=== PATIENT | male | born 1960 | race Caucasian/White ===

== ENCOUNTER 2017-09-16 12:05 | Inpatient (IN) | payer OTHER | END 2017-09-20 09:59 | disposition home or self-care (01) | DRG 773 | LOC: YASAS 12:05 → Y3N 14:36 | PROVIDERS: ADMIT Internal Medicine | PROC: HZ2ZZZZ Detoxification Services for Substance Abuse Treatment (ICD-10-PCS; principal; 2017-09-16) | CPT/HCPCS: 36415; 71045-TC-FY; 80053; 81003; 85027; 86593; 93005; 93010 ==

== ENCOUNTER 2022-12-17 13:42 | Inpatient (IN) | payer OTHER ==
[2022-12-17] MEDS ORDERED: VANCOMYCIN 1 GM in D5W (PRE-DOCKED) 1,000 MG/250 ML (RESTRICTED TO ID ONLY IVPB ONE (14:59)
[2022-12-17] MEDS ORDERED: PIPERACILLIN/TAZOB 4.5 GM 4.5 GM in DEXTROSE 5%-WATER 100 ML IVPB ONE (14:59)
[2022-12-17] MEDS ORDERED: PIPERACILLIN/TAZOB 4.5 GM 4.5 GM/100 ML BAG IVPB ONE (15:47)
[2022-12-17] MEDS ORDERED: VANCOMYCIN/WATER FOR INJ (PEG) 1,000 MG/200 ML BAG IVPB ONE (15:47)
[2022-12-17 17:03] LABS: BASO % 0.2 % (0-2.0); EOS % 0.1 % (0-4.5); HEMATOCRIT 31.2 % (35.4-49); HEMOGLOBIN 10.5 GM/dL (11.7-16.9); LYMPH % 28.6 % (8-40); MCH 27.7 pg (25.7-33.7); MCHC 33.6 g/dl (32.0-35.9); MEAN CELL VOLUME 82.5 fl (80-96); MEAN PLT VOLUME 8.6 fl (7.5-11.1); MONO % 6.7 % (3.8-10.2); NEUT % 64.4 % (42.8-82.8); PLATELET COUNT 129 10^3/uL (134-434); RBC 3.78 M/mm3 (4.00-5.60); RDW 14.7 % (11.9-15.9); WHITE BLOOD COUNT 7.2 K/mm3 (4.0-10.0)
[2022-12-17 17:10] LABS: INR 1.07 (0.83-1.09); PROTHROMBIN TIME (PATIENT) 12.4 SEC (9.7-13.0)
[2022-12-17 17:11] LABS: POTASSIUM 4.6 mmol/L (3.5-5.1)
[2022-12-17 17:12] LABS: ACTIVATED PTT 23.6 SECONDS (25.2-36.5)
[2022-12-17 17:15] LABS: ALBUMIN 2.6 g/dl (3.4-5.0)
[2022-12-17 17:18] LABS: CREATININE 0.6 mg/dL (0.55-1.3)
[2022-12-17 17:20] LABS: BILIRUBIN,TOTAL 0.7 mg/dL (0.2-1); TOT PROT 6.9 g/dl (6.4-8.2)
[2022-12-17] MEDS ORDERED: ACETAMINOPHEN 1000 MG/100 ML BAG IVPB ONE (17:40)
[2022-12-17] MEDS ORDERED: ACETAMINOPHEN INJECTION 100 ML IVPB ONE (17:41)
[2022-12-17] MEDS ORDERED: SODIUM CHLORIDE 1,000 ML IV SCH (22:15)
[2022-12-18 00:44] LABS: RETICULOCYTES 1.68 % (0.5-1.5)
[2022-12-18] MEDS: PIPERACILLIN/TAZOB 3.375 GM 3.375 GM in DEXTROSE 5%-WATER - 50 ML IVPB SCH ×4 (04:26→19:22)
[2022-12-18 05:01] VITALS: BMI 16.5
[2022-12-18] MEDS ORDERED: VANCOMYCIN 1 GM in D5W (PRE-DOCKED) 1,000 MG/250 ML (RESTRICTED TO ID ONLY IVPB SCH (10:00)
[2022-12-18] MEDS: ENOXAPARIN NA (PORCINE) 40 MG/0.4 ML DISP.SYRIN SQ SCH (12:02)
[2022-12-18] MEDS ORDERED: methaDONE HCL 10 MG TABLET (FOR DETOX USE ONLY) PO SCH (14:45)
[2022-12-18] MEDS: VANCOMYCIN PREMIX 1.5 GM 1,500 MG/300 ML BAG IVPB SCH (15:16)
[2022-12-18 16:10] LABS: HEMATOCRIT 32.2 % (35.4-49); HEMOGLOBIN 10.8 GM/dL (11.7-16.9); MCH 28.1 pg (25.7-33.7); MCHC 33.6 g/dl (32.0-35.9); MEAN CELL VOLUME 83.6 fl (80-96); MEAN PLT VOLUME 8.6 fl (7.5-11.1); PLATELET COUNT 121 10^3/uL (134-434); RBC 3.85 M/mm3 (4.00-5.60); RDW 14.9 % (11.9-15.9); WHITE BLOOD COUNT 5.7 K/mm3 (4.0-10.0)
[2022-12-18 16:33] LABS: ALBUMIN 2.4 g/dl (3.4-5.0); BLOOD UREA NITROGEN 21.3 mg/dL (7-18); CALCIUM 9.1 mg/dL (8.5-10.1)
[2022-12-18 16:36] LABS: CREATININE 0.7 mg/dL (0.55-1.3)
[2022-12-18 16:38] LABS: BILIRUBIN,TOTAL 0.7 mg/dL (0.2-1); TOT PROT 6.4 g/dl (6.4-8.2)
[2022-12-19] MEDS: PIPERACILLIN/TAZOB 3.375 GM 3.375 GM in DEXTROSE 5%-WATER - 50 ML IVPB SCH ×3 (01:15→17:30)
[2022-12-19] MEDS: ENOXAPARIN NA (PORCINE) 40 MG/0.4 ML DISP.SYRIN SQ SCH (09:39)
[2022-12-19 09:42] LABS: BASO % 0.2 % (0-2.0); EOS % 0.4 % (0-4.5); HEMATOCRIT 29.1 % (35.4-49); HEMOGLOBIN 9.6 GM/dL (11.7-16.9); LYMPH % 34.9 % (8-40); MCH 27.6 pg (25.7-33.7); MCHC 32.9 g/dl (32.0-35.9); MEAN CELL VOLUME 83.9 fl (80-96); MEAN PLT VOLUME 9.3 fl (7.5-11.1); MONO % 3.9 % (3.8-10.2); NEUT % 60.6 % (42.8-82.8); PLATELET COUNT 122 10^3/uL (134-434); RBC 3.47 M/mm3 (4.00-5.60); RDW 14.2 % (11.9-15.9); WHITE BLOOD COUNT 5.5 K/mm3 (4.0-10.0)
[2022-12-19 10:00] LABS: POTASSIUM 3.3 mmol/L (3.5-5.1)
[2022-12-19 10:03] LABS: BLOOD UREA NITROGEN 17.6 mg/dL (7-18); CALCIUM 8.9 mg/dL (8.5-10.1)
[2022-12-19 10:04] LABS: ALBUMIN 2.3 g/dl (3.4-5.0)
[2022-12-19 10:07] LABS: CREATININE 0.7 mg/dL (0.55-1.3)
[2022-12-19 10:09] LABS: BILIRUBIN,TOTAL 0.5 mg/dL (0.2-1); TOT PROT 6.2 g/dl (6.4-8.2)
[2022-12-19] MEDS: VANCOMYCIN PREMIX 1.5 GM 1,500 MG/300 ML BAG IVPB SCH (14:44)
[2022-12-19] MEDS ORDERED: PIPERACILLIN/TAZOBACTAM 3.375 GM VIAL IVPB ONE (17:20)
[2022-12-20] MEDS: PIPERACILLIN/TAZOB 3.375 GM 3.375 GM in DEXTROSE 5%-WATER - 50 ML IVPB SCH ×3 (01:40→17:56)
[2022-12-20] MEDS ORDERED: methaDONE HCL 10 MG TABLET (FOR DETOX USE ONLY) PO SCH (06:00)
[2022-12-20] MEDS: ENOXAPARIN NA (PORCINE) 40 MG/0.4 ML DISP.SYRIN SQ SCH (09:02)
[2022-12-20 09:15] LABS: BASO % 0.8 % (0-2.0); EOS % 1.9 % (0-4.5); HEMATOCRIT 28.2 % (35.4-49); HEMOGLOBIN 9.5 GM/dL (11.7-16.9); LYMPH % 52.2 % (8-40); MCHC 33.6 g/dl (32.0-35.9); MEAN CELL VOLUME 83.6 fl (80-96); MONO % 5.6 % (3.8-10.2); NEUT % 39.5 % (42.8-82.8); PLATELET COUNT 116 10^3/uL (134-434); RBC 3.38 M/mm3 (4.00-5.60); RDW 14.7 % (11.9-15.9); WHITE BLOOD COUNT 4.2 K/mm3 (4.0-10.0)
[2022-12-20 09:42] LABS: POTASSIUM 3.8 mmol/L (3.5-5.1)
[2022-12-20 09:51] LABS: ALBUMIN 2.2 g/dl (3.4-5.0); BLOOD UREA NITROGEN 22.7 mg/dL (7-18); CALCIUM 8.7 mg/dL (8.5-10.1); MAGNESIUM 1.6 mg/dL (1.8-2.4)
[2022-12-20 09:54] LABS: CREATININE 0.8 mg/dL (0.55-1.3)
[2022-12-20 09:55] LABS: BILIRUBIN,TOTAL 0.4 mg/dL (0.2-1)
[2022-12-20 09:56] LABS: TOT PROT 6.1 g/dl (6.4-8.2)
[2022-12-20 10:29] VITALS: RESP 20
[2022-12-20] MEDS: VANCOMYCIN PREMIX 1.5 GM 1,500 MG/300 ML BAG IVPB SCH (14:32)
[2022-12-21] MEDS: PIPERACILLIN/TAZOB 3.375 GM 3.375 GM in DEXTROSE 5%-WATER - 50 ML IVPB SCH ×3 (01:03→17:16)
[2022-12-21] MEDS: ENOXAPARIN NA (PORCINE) 40 MG/0.4 ML DISP.SYRIN SQ SCH (09:57)
[2022-12-21 14:39] LABS: POTASSIUM 4.1 mmol/L (3.5-5.1)
[2022-12-21 14:40] LABS: CALCIUM 8.8 mg/dL (8.5-10.1)
[2022-12-21 14:41] LABS: BLOOD UREA NITROGEN 21.1 mg/dL (7-18)
[2022-12-21 14:45] LABS: CREATININE 0.8 mg/dL (0.55-1.3)
[2022-12-21 14:52] VITALS: BP 100/58; PULSE 59; TEMP 97.8
[2022-12-21] MEDS: VANCOMYCIN PREMIX 1.5 GM 1,500 MG/300 ML BAG IVPB SCH (16:55)
== END 2022-12-21 18:25 | disposition other institution (70) | DRG 383 ==
LOC: JER 13:42 → JERBED 20:50 → J6S 12-18 01:36
PROVIDERS: ADMIT Internal Medicine; ATTEND Psychiatry & Neurology Pain Medicine
DX: L03.213 Periorbital cellulitis (principal); E43 Unspecified severe protein-calorie malnutrition; E87.1 Hypo-osmolality and hyponatremia; D69.6 Thrombocytopenia, unspecified; L03.115 Cellulitis of right lower limb; F11.23 Opioid dependence with withdrawal; Z68.1 Body mass index [BMI] 19.9 or less, adult; F41.9 Anxiety disorder, unspecified; D64.9 Anemia, unspecified; F17.210 Nicotine dependence, cigarettes, uncomplicated; B18.2 Chronic viral hepatitis C
CPT/HCPCS: 0241U-QW; 36415; 70481-TC; 71046-TC-FY; 73700-TC-RT; 80048; 80053; 82728; 83036; 83540; 83550; 83605; 83735; 84466; 85025; 85027; 85045; 85610; 85651; 85730; 86140; 86850; 86900; 86901; 87040; 87081; 93005; 93010; 93306-TC; 99285-25; G0480; Q9967